=== PATIENT | male | born 1955 | race Caucasian/White ===

== ENCOUNTER 2018-03-16 16:11 | Day surgery (SDC) | payer SELFPAY ==
[2018-03-16] MEDS ORDERED: METFORMIN HCL500 M4 PO (16:30)
[2018-03-16] MEDS ORDERED: SUPER B-50 COM1 EACH PO (16:40)
[2018-03-16] MEDS ORDERED: VITAMIN A10000 UNIT PO (16:40)
[2018-03-16] MEDS ORDERED: VITAMIN C1000 MG PO (16:41)
[2018-03-16] MEDS ORDERED: VITAMIN D-32000 UNI2 PO (16:42)
[2018-03-16] MEDS ORDERED: EVENING PRIMR1000 MG PO (16:43)
[2018-03-16] MEDS ORDERED: ALPHA LIPOIC A200 M1 PO (16:43)
[2018-03-16] MEDS ORDERED: CO Q-10200 MG PO (16:43)
[2018-03-16] MEDS ORDERED: GRAPE SEED PO (16:44)
[2018-03-16] MEDS ORDERED: MAGNESIUM OXID200 MG PO (16:45)
[2018-03-16] MEDS ORDERED: CINNAMON500 MG PO (16:45)
[2018-03-16] MEDS ORDERED: BILBERRY100 MG PO (16:45)
[2018-03-16] MEDS ORDERED: KLOR-CON SPRINK8 MEQ PO (16:46)
[2018-03-16] MEDS ORDERED: SELENIUM100 MICROG BC (16:47)
[2018-03-16] MEDS ORDERED: OLIVE LEAF EXT250 MG PO (16:48)
[2018-03-16 16:50] LABS: HEMATOCRIT 39.1 % (38.0-50.0); MCH 30.9 PG (29.0-34.0); MCHC 35.8 G/DL (30.0-36.0); MCV 86.3 FL (86-99); PLATELET COUNT 206 K/uL (156-360); RBC DIS.WIDTH-CV 12.2 % (11.8-14.6); RBC DIS.WIDTH-SD 38.5 % (39-53); RED BLOOD COUNT 4.53 M/uL (4.00-5.50); WHITE BLOOD COUNT 15.7 K/uL (4.1-10.2)
[2018-03-16] MEDS ORDERED: ZINC30 MG PO (16:51)
[2018-03-16] MEDS ORDERED: CHROMIUM400 MCG PO (16:51)
[2018-03-16 17:17] LABS: ALBUMIN 4.4 G/DL (3.2-4.8); ALKALINE PHOSPHATASE 62 IU/L (3-129); ALT (GPT) 11 IU/L (3-49); AST (GOT) 14 IU/L (2-34); CHLORIDE 97 MEQ/L (99-109); CREATININE 0.8 MG/DL (0.6-1.3); GFR ESTIMATE (CALCULATED) > 59 mL/min/ (58.99-99999); GLUCOSE 190 mg/dL (70-99); POTASSIUM 3.7 MEQ/L (3.7-5.4); SODIUM 133 MEQ/L (136-147); TOTAL BILIRUBIN 0.7 MG/DL (0.0-1.0); TOTAL PROTEIN 6.9 G/DL (6.4-8.3); UREA NITROGEN (BUN) 9 mg/dL (9-23)
[2018-03-16 17:38] VITALS: BP 171/89
[2018-03-16 19:42] VITALS: BP 146/69
[2018-03-16 20:03] VITALS: BP 125/71
== END 2018-03-16 20:10 | disposition home or self-care (01) ==
LOC: SDC 16:11
PROVIDERS: Ophthalmology
DX: E11.39 Type 2 diabetes mellitus with other diabetic ophthalmic complication (principal); H44.002 Unspecified purulent endophthalmitis, left eye; H21.542 Posterior synechiae (iris), left eye; H35.372 Puckering of macula, left eye; Z79.84 Long term (current) use of oral hypoglycemic drugs
CPT/HCPCS: 80053; 82948; 85027; 87070; 87075; 87077; 87102; 87186; 87205; 93005; J0690; J1100; J1120; J1885; J2795